=== PATIENT | male | born 1960 | race Hispanic/Latino ===

== ENCOUNTER 2022-05-22 15:12 | Emergency (ER) | payer SELFPAY ==
[~2022-05-22] VITALS: Ht 165.1 cm; Wt 77.1 kg
[2022-05-22] MEDS ORDERED: CLOTRIMAZOLE45 GM EXT (15:46)
[2022-05-22] MEDS ORDERED: METFORMIN HCL500 MG PO (15:47)
== END 2022-05-22 15:52 | disposition home or self-care (01) ==
LOC: ER 15:23
DX: N48.1 Balanitis (principal); I10 Essential (primary) hypertension; E11.9 Type 2 diabetes mellitus without complications; E78.5 Hyperlipidemia, unspecified
CPT/HCPCS: 99282

== ENCOUNTER 2024-06-22 01:52 | Emergency (ER) | payer MEDICARE ==
[~2024-06-22] VITALS: Ht 165.1 cm; Wt 77.1 kg
[~2024-06-22 01:52] MED LIST: CLOTRIMAZOLE45 GM EXT; METFORMIN HCL500 MG PO
[2024-06-22 01:55] VITALS: RESP 16; TEMP 97.9
[2024-06-22] MEDS: HYDROCODONE/APAP 7.5MG-325MG 1 EA TAB PO STA (02:13)
[2024-06-22] MEDS: KETOROLAC TROMETHAMINE 30 MG/ML VIAL IM STA (02:13)
[2024-06-22 02:30] VITALS: PULSE 72
[2024-06-22] MEDS ORDERED: NAPROXEN250 MG PO (03:40)
[2024-06-22] MEDS ORDERED: ULTRAM 50MG50 MG PO (03:40)
[2024-06-22 03:55] VITALS: BP 119/68; O2SAT 97
== END 2024-06-22 03:50 | disposition home or self-care (01) ==
LOC: ER 02:04
DX: M54.50 Low back pain, unspecified (principal); W11.XXXA Fall on and from ladder, initial encounter; Y92.89 Other specified places as the place of occurrence of the external cause; I10 Essential (primary) hypertension; E11.9 Type 2 diabetes mellitus without complications; E78.5 Hyperlipidemia, unspecified
CPT/HCPCS: 72131; 72192; 99283; J1885